=== PATIENT | male | born 1985 | race Two or more races ===

== ENCOUNTER 2025-08-11 20:30 | Emergency (ER) | payer BC, MEDICAID, OTHER ==
[~2025-08-11] VITALS: Ht 172.7 cm; Wt 77.0 kg
[2025-08-11] MEDS ORDERED: CLON0.1T PO (21:32)
--- NOTE | 2025-08-11 21:50 | ED.PDOC ---
History of Present Illness HPI Comments 39-year-old male who came to ER for withdrawals. Patient is homeless. Has been traveling on foot from [place] to [place]. States he has been off his methadone 80 mg for the past 4 days. Patient feels like he is about to going to withdrawals Chief Complaint: Withdrawal Time Seen by MD: 21:50 Reviewed Notes: Nurses Notes Allergies: Coded Allergies: NO KNOWN ALLERGIES (Unverified , 08/11/25) Home Meds Active Scripts Clonidine Hydrochloride (Clonidine Hcl) 0.1 Mg Tab, 1 TAB PO Q8HP PRN, #30 TAB 0 Refills Prov:TAMELA TOWNSEND MD 08/11/25 Information Source: Patient Mode of Arrival: Ambulatory Severity: Moderate Timing: Days Duration: Intermittent Past Medical History PAST MEDICAL HISTORY: Denies Surgical History: Denies all surgeries Family History Family History: Reviewed,noncontributory to illness Social History Smoker: Non-Smoker Alcohol: Denies ETOH Use Drugs: Denies Drug Use Lives In: Homeless Constitutional: denies: chills, diaphoresis, fatigue, fever, malaise, sweats, weakness, others EENTM: denies: blurred vision, double vision, ear bleeding, ear discharge, ear drainage, ear pain, ear ringing, eye pain, eye redness, hearing loss, mouth pain, mouth swelling, nasal discharge, nose bleeding, nose congestion, nose pain, photophobia, tearing, throat pain, throat swelling, voice changes, others Respiratory: denies: cough, hemoptysis, orthopnea, SOB at rest, shortness of breath, SOB with excertion, stridor, wheezing, others Cardiovascular: denies: chest pain, dizzy spells, diaphoresis, Dyspnea on exertion, edema, irregular heart beat, left arm pain, lightheadedness, palpitations, PND, syncope, others Gastrointestinal: denies: abdomen distended, abdominal pain, blood streaked bowels, constipated, diarrhea, dysphagia, difficulty swallowing, hematemesis, melena, nausea, poor appetite, poor fluid intake, rectal bleeding, rectal pain, vomiting, others Genitourinary: denies: burning, dysuria, flank pain, frequency, hematuria, incontinence, penile discharge, penile sore, pain, testicle pain, testicle swelling, urgency, others Neurological: denies: dizziness, fainting, headache, left sided numbness, left sided weakness, numbness, paresthesia, pre-existing deficit, right sided numbness, right sided weakness, seizure, speech problems, tingling, tremors, weakness, others Musculoskeletal: denies: back pain, gout, joint pain, joint swelling, muscle pain, muscle stiffness, neck pain, others Integumetry: denies: bruises, change in color, change in hair/nails, dryness, laceration, lesions, lumps, rash, wounds, others Allergic/Immunocompromised: denies: Difficulty Healing, Frequent Infections, Hives, Itching, others Hematologic/Lymphatic: denies: anemia, blood clots, easy bleeding, easy bruising, swollen glands, others Endocrine: denies: excessive hunger, excessive sweating, excessive thirst, excessive urination, flushing, intolerance to cold, intolerance to heat, unexplained weight gain, unexplained weight loss, others Psychiatric: denies: anxiety, bipolar disorder, depression, hopeless, panic disorder, schizophrenia, sleepless, suicidal, others Physical Exam General Appearance: No Apparent Distress, Normal HEENT: Normal ENT Inspection, Pharynx Normal, TMs Normal Neck: Full Range of Motion, Non-Tender, Normal, Normal Inspection Respiratory: Chest Non-Tender, Lungs Clear, No Accessory Muscle Use, No Respiratory Distress, Normal Breath Sounds Cardiovascular: No Edema, No JVD, No Murmur, No Gallop, Normal Peripheral Pulses, Regular Rate/Rhythm Breast Exam: Deferred Gastrointestinal: No Organomegaly, Non Tender, No Pulsatile Mass, Normal Bowel Sounds, Soft Genitalia: Deferred Pelvic: Deferred Rectal: Deferred Extremities: No calf tenderness, Normal capillary refill, Normal inspection, Normal range of motion, Non-tender, No pedal edema Musculoskeletal : Apperance: Normal 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 Was a procedure done?: No Differential Dx Considerations may include: Anemia, electrolyte imbalance, withdrawals X-Ray, Labs, Meds, VS Vital Signs Date Time Temp Pulse Resp B/P (MAP) Pulse Ox O2 Delivery O2 Flow Rate FiO2 08/12/25 02:39 98.2 73 12 123/70 (87) 100 98.2 08/12/25 02:39 73 12 100 Room Air* 0 21 08/11/25 20:47 98.2 97 18 140/84 95 98.2 Time of 1ST Reevaluation: 21:48 Reevaluation 1ST: Unchanged Patient Education/Counseling: Diagnosis, Treatment Family Education/Counseling: No Family Present SEPSIS Sepsis Screen Date sepsis recognized/suspect: Aug 11, 2025 Time Sepsis recognized/suspect: 2047 Recent Procedure: No On Antibiotic Therapy: No Respiratory Rate >20: No Heart Rate >90: No Temp<36 C (96.8 F) or >38.3 C: No SBP <90 or MAP <65 mmHG: No New Acute Mental Status Change: No Is the patient on CPAP, BIPAP,: No Vital Signs Date Time Temp Pulse Resp B/P (MAP) Pulse Ox O2 Delivery O2 Flow Rate FiO2 08/12/25 02:39 98.2 73 12 123/70 (87) 100 98.2 08/12/25 02:39 73 12 100 Room Air* 0 21 08/11/25 20:47 98.2 97 18 140/84 95 98.2 Departure 1 Departure Time of Disposition: 23:00 Impression: Primary Impression: Methadone dependence Disposition: 01 HOME / SELF CARE / HOMELESS Condition: Stable Additional Instructions: Clonidine can help with your withdrawal symptoms Follow up with your primary physician Return to the Emergency Department for any worsening symptoms or concerns e-Prescriptions Clonidine Hydrochloride (Clonidine Hcl) 0.1 Mg Tab 1 TAB PO Q8HP PRN, #30 TAB 0 Refills Prov: TAMELA TOWNSEND MD 08/11/25 Discharged With: Self Critical Care Note Critical Care Time?: No Stability Stability form required: No Heart Score Heart Score: Heart Score Response (Comments) Value History N/A 0 EKG N/A 0 Age N/A 0 Risk Factors N/A 0 Troponin N/A 0 Total 0 I personally scribed for TAMELA TOWNSEND MD ([email or web address]) on 08/11/25 at 21:50. Electronically submitted by Barrera Yu ([email or web address]). TAMELA TOWNSEND MD Aug 11, 2025 21:50
[2025-08-12 02:39] VITALS: BP 123/70; PULSE 73; RESP 12; TEMP 98.2; O2SAT 100
[2025-08-12] MEDS: HYDROcodone-ACET 10/325MG TAB PO ONE (02:52)
== END 2025-08-12 03:10 | disposition home or self-care (01) ==
LOC: ER 20:30
DX: F11.20 Opioid dependence, uncomplicated (principal)